=== PATIENT | male | born 1985 | race Caucasian/White ===

== ENCOUNTER 2018-06-05 15:12 | Emergency (ER) | payer SELFPAY ==
[2018-06-05] MEDS: Sodium Chloride 0.9% 10 ML Syringe FLUSH PRN ×2 (15:18→15:23)
[2018-06-05] MEDS ORDERED: cefTRIAXone 500 MG Vial IVPUSH STA (15:20)
--- NOTE | 2018-06-05 15:22 | EDM.PDOC ---
ED HPI GENERAL MEDICAL PROBLEM - General Stated Complaint: SUICIDAL IDEATION Time Seen by Provider: 06/05/18 15:12 Source of Information: Reports: Patient History Limitations: Reports: No Limitations - History of Present Illness INITIAL COMMENTS - FREE TEXT/NARRATIVE: 33 y.o.w.m walked into the ED by himself after he cut into his ant neck at 11.30 due to a suicidal attempt. Pt had deep self inflicted wounds at his upper and lower extremities which are 1 day old, No C/P, no SOB, denies Drug or ETOH use. Pt is cooperative. No family is in the room. No other acute medical issues. Initial Vitals: BP 125/76 Pulse 122 RR 29 Temp 98.8 Pulse ox 98% on RA Onset Date: 06/05/18 Onset Time: 11:30 Duration: Hour(s): Location: Reports: Neck, Upper Extremity, Left, Upper Extremity, Right, Lower Extremity, Left, Lower Extremity, Right Quality: Reports: Ache, Burning, Dull, Stabbing Severity: Moderate Improves with: Reports: Rest Worsens with: Reports: Movement Context: Reports: Trauma (Suicidal attemp) Associated Symptoms: Reports: Other - Related Data Allergies Allergy/AdvReac Type Severity Reaction Status Date / Time No Known Allergies Allergy Verified 06/05/18 16:42 Home Meds: Home Meds NK [No Known Home Meds] 08/07/13 [History] Past Medical History - Past Health History Medical/Surgical History: Denies Medical/Surgical History Review of Systems - Review of Systems Review Of Systems: See Below Constitutional: Reports: No Symptoms Eyes: Reports: No Symptoms Ears: Reports: No Symptoms Nose: Reports: No Symptoms Mouth/Throat: Reports: Other (pain, bleed) Respiratory: Reports: No Symptoms Cardiovascular: Reports: Lightheadedness GI/Abdominal: Reports: No Symptoms Genitourinary: Reports: No Symptoms Musculoskeletal: Reports: Neck Pain (injuries) Skin: Reports: Wound (to neck, upper and lower extremities) Neurological: Reports: No Symptoms Psychiatric: Reports: Suicidal Ideation ED EXAM, GENERAL - Physical Exam Exam: See Below Exam Limited By: No Limitations General Appearance: Alert, WD/WN, Moderate Distress Eye Exam: Bilateral Eye: Normal Inspection Ears: Normal External Exam, Normal Canal Ear Exam: Bilateral Ear: Auricle Normal Nose: Normal Inspection, Normal Mucosa, No Blood Throat/Mouth: Normal Inspection, Normal Lips, Normal Voice, No Airway Compromise Head: Atraumatic, Normocephalic Neck: Supple, Other (7 cm vertical injuroies with injured Platysma, no active bleed.) Respiratory/Chest: No Respiratory Distress, Lungs Clear, Normal Breath Sounds, Chest Non-Tender Cardiovascular: Normal Peripheral Pulses, Tachycardia Peripheral Pulses: 1+: Femoral (L) GI/Abdominal: Normal Bowel Sounds, Soft, Non-Tender, No Organomegaly, No Abnormal Bruit, No Mass, Pelvis Stable (Male) Exam: No Hernia, Normal Inspection Rectal (Males) Exam: Normal Exam, Normal Rectal Tone Back Exam: Normal Inspection, Full Range of Motion Extremities: Normal Range of Motion, Normal Capillary Refill, Other ( selfinflicted cuts upper and lower extremities) Neurological: Alert, Oriented, CN II-XII Intact, Normal Cognition, Normal Gait ( walked into the ED) Psychiatric: Other (suicidal attemp) Skin Exam: Warm, Dry, Wound/Incision (neck, upper and lower extremities) Lymphatic: No Adenopathy EKG INTERPRETATION EKG Date: 06/05/18 Time: 15:35 Rhythm: NSR Rate (Beats/Min): 109 [place]: Normal P-Wave: Present QRS: Normal ST-T: Normal QT: Normal Comparison: NA - No Prior EKG Course - Vital Signs Text/Narrative:: 33 y.o.w.m walked into the ED by himself after he cut into his ant neck at 11.30 due to a suicidal attempt. Pt had deep self inflicted wounds at his upper and lower extremities which are 1 day old, No C/P, no SOB, denies Drug or ETOH use. Pt is cooperative. No family is in the room. No other acute medical issues. Initial Vitals: BP 125/76 Pulse 122 RR 29 Temp 98.8 Pulse ox 98% on RA PE: WNWD W M with Deep cut at his neck down to his Platysma, which is lacerated as well, no active bleed identified, upper and lower extr, self inflicted injuries. Imaging: None Labs: Results came back after the pt left for [place] by EMS: WBC 14.4 HGB 13.6 BMP: Na 132 K 4.0 Cl 90 CO2 25 BUN 20 Cr 1.9 GFR 41 Glc 312 UDS was pos for tricyclics Impression: Self inflicted wounds to neck, upper and lower extremities. Platysma violated Tx: NS, Rocephin, TD 3.15 pm Consultation: Dr. Garrison, Trauma Surgeon: Trauma Alert: Dr. Garrison has seen and examined the patient, recommended to transfer the pt out because we do not have the equipment to repair the deep neck injuries. 3.29 pm Consultation: Dr. Wang, Trauma Surgeon, [facility]: BP 103/79 Pulse 124, Accepted the pt for transfer and further care. Reexam: 1 liter NS was given, no change of heart rate. Pt is cooperative, refused pain meds, denies pain, Plan: Transfer to [place] ED by EMS - Orders/Labs/Meds Orders: Active Orders 24 hr Category Date Time Status EKG Documentation Completion [RC] ASDIRECTED Care 06/05/18 15:41 Active Insert Hallman Catheter [Insert Urinary Catheter] [OM.PC] Care 06/05/18 15:40 Ordered Q24H Urinary Catheter Assessment [RC] QSHIFT Care 06/05/18 15:40 Active Vaccines to be Administered [RC] PER UNIT ROUTINE Care 06/05/18 15:26 Active EKG 12 Lead [EK] Routine Ther 06/05/18 15:40 Ordered Labs: Laboratory Tests 06/05/18 06/05/18 06/05/18 Range/Units 15:20 15:20 15:20 WBC 14.9 H (4.5-12.0) X10-3/uL RBC 4.42 (4.30-5.75) x10(6)uL Hgb 13.6 (13.5-17.8) g/dL Hct 40.2 (30.0-51.3) % MCV 90.8 (80-96) fL MCH 30.8 (27.7-33.6) pg MCHC 34.0 (32.2-35.4) g/dL RDW 18.1 H (11.5-15.5) % Plt Count 239 (125-369) X10(3)uL MPV 8.8 (7.4-10.4) fL Add Manual Diff Yes Neutrophils % (Manual) 91 H (46-82) % Lymphocytes % (Manual) 2 L (13-37) % Monocytes % (Manual) 7 (4-12) % Anisocytosis Moderate H PT 10.2 (8.7-11.1) INR 1.05 (0.89-1.13) Sodium 132 L (135-145) mmol/L Potassium 4.0 (3.5-5.3) mmol/L Chloride 90 L (100-110) mmol/L Carbon Dioxide 23 (21-32) mmol/L BUN 12 (7-18) mg/dL Creatinine 1.9 H (0.70-1.30) mg/dL Est Cr Clr Drug Dosing TNP Estimated GFR (MDRD) 41 L (>60) BUN/Creatinine Ratio 6.3 L (9-20) Glucose 315 H (80-116) mg/dL Calcium 10.0 (8.6-10.2) mg/dL Urine Opiates Screen (NEGATIVE) Ur Oxycodone Screen (NEGATIVE) Ur Propoxyphene Screen (NEGATIVE) Ur Barbituates Screen (NEGATIVE) Ur Tricyclics Screen (NEGATIVE) Ur Phencyclidine Scrn (NEGATIVE) Ur Amphetamine Screen (NEGATIVE) Urine MDMA Screen (NEGATIVE) U Benzodiazepines Scrn (NEGATIVE) U Cocaine Metab Screen (NEGATIVE) U Marijuana (THC) Screen (NEGATIVE) Ethyl Alcohol (<0.03) % Blood Type Gel Antibody Screen 06/05/18 06/05/18 06/05/18 Range/Units 15:20 15:20 15:45 WBC (4.5-12.0) X10-3/uL RBC (4.30-5.75) x10(6)uL Hgb (13.5-17.8) g/dL Hct (30.0-51.3) % MCV (80-96) fL MCH (27.7-33.6) pg MCHC (32.2-35.4) g/dL RDW (11.5-15.5) % Plt Count (125-369) X10(3)uL MPV (7.4-10.4) fL Add Manual Diff Neutrophils % (Manual) (46-82) % Lymphocytes % (Manual) (13-37) % Monocytes % (Manual) (4-12) % Anisocytosis PT (8.7-11.1) INR (0.89-1.13) Sodium (135-145) mmol/L Potassium (3.5-5.3) mmol/L Chloride (100-110) mmol/L Carbon Dioxide (21-32) mmol/L BUN (7-18) mg/dL Creatinine (0.70-1.30) mg/dL Est Cr Clr Drug Dosing Estimated GFR (MDRD) (>60) BUN/Creatinine Ratio (9-20) Glucose (80-116) mg/dL Calcium (8.6-10.2) mg/dL Urine Opiates Screen Negative (NEGATIVE) Ur Oxycodone Screen Negative (NEGATIVE) Ur Propoxyphene Screen Negative (NEGATIVE) Ur Barbituates Screen Negative (NEGATIVE) Ur Tricyclics Screen Positive H (NEGATIVE) Ur Phencyclidine Scrn Negative (NEGATIVE) Ur Amphetamine Screen Negative (NEGATIVE) Urine MDMA Screen Negative (NEGATIVE) U Benzodiazepines Scrn Negative (NEGATIVE) U Cocaine Metab Screen Negative (NEGATIVE) U Marijuana (THC) Screen Negative (NEGATIVE) Ethyl Alcohol < 0.03 (<0.03) % Blood Type A POSITIVE Gel Antibody Screen Negative Meds: Medications Discontinued Medications Generic Name Dose Route Start Last Admin Trade Name Freq PRN Reason Stop Dose Admin Ceftriaxone Sodium 1,000 mg 06/05/18 15:20 06/05/18 15:25 Rocephin IVPUSH 06/05/18 15:21 1,000 mg ONETIME STA Administration Diphtheria/Tetanus/Acell Pertussis 0.5 ml 06/05/18 15:25 06/05/18 15:26 Adacel IM 06/05/18 15:26 0.5 ml .ONCE ONE Administration Sodium Chloride 1,000 mls @ 999 mls/hr 06/05/18 15:30 06/05/18 15:20 Normal Saline IV 125 mls/hr ASDIRECTED DINH Administration Sodium Chloride 10 ml 06/05/18 15:15 06/05/18 15:23 Saline Flush FLUSH 10 ml ASDIRECTED PRN Administration IV Use Departure - Departure Time of Disposition: 16:00 Disposition: DC/Tfer to Acute Hospital 02 Condition: Fair Clinical Impression: Suicidal behavior with attempted self-injury Neck injuries Qualifiers: Encounter type: initial encounter Qualified Code(s): S19.9XXA - Unspecified injury of neck, initial encounter - Discharge Information Referrals: PCP,None [Primary Care Provider] - Forms: ED Department Discharge Critical Care Note - Critical Care Note Total Time (mins): 30 - My Orders Last 24 Hours: My Active Orders 06/05/18 15:26 Vaccines to be Administered [RC] PER UNIT ROUTINE 06/05/18 15:40 Insert Hallman Catheter [Insert Urinary Catheter] [OM.PC] Q24H Urinary Catheter Assessment [RC] QSHIFT EKG 12 Lead [EK] Routine 06/05/18 15:41 EKG Documentation Completion [RC] ASDIRECTED - Assessment/Plan Last 24 Hours: My Active Orders 06/05/18 15:26 Vaccines to be Administered [RC] PER UNIT ROUTINE 06/05/18 15:40 Insert Hallman Catheter [Insert Urinary Catheter] [OM.PC] Q24H Urinary Catheter Assessment [RC] QSHIFT EKG 12 Lead [EK] Routine 06/05/18 15:41 EKG Documentation Completion [RC] ASDIRECTED
[2018-06-05] MEDS ORDERED: Diphtheria,Pertussis(Acell),Tetanus Vaccine 0.5 ML SDV IM ONE (15:25)
[2018-06-05] MEDS ORDERED: Sodium Chloride 0.9% 1,000 ML IV SCH (15:30)
== END 2018-06-05 15:50 ==
LOC: FB.ED 15:12
DX: S19.9XXA Unspecified injury of neck, initial encounter (principal); X78.9XXA Intentional self-harm by unspecified sharp object, initial encounter; Z23 Encounter for immunization
CPT/HCPCS: 36415; 51702; 80048; 80305; 85025; 85610; 86850; 86900; 86901; 90471; 90715; 93005; 96374; 99285; G0480; J0696; J7030